=== PATIENT | female | born 1965 | race Caucasian/White ===

== ENCOUNTER 2018-07-20 08:56 | Emergency (ER) | payer OTHER ==
[2018-07-20 08:57] VITALS: BMI 40.2
[2018-07-20] MEDS ORDERED: MethylPREDNISolone 40 mg Vial IVP STA (09:15)
[2018-07-20] MEDS ORDERED: DiphenhydrAMINE 50 mg/ml Inj IVP STA (09:15)
[2018-07-20] MEDS ORDERED: Sodium Chloride 0.9% 1,000 ML IV ONE (09:15)
--- NOTE | 2018-07-20 09:19 | C.PDOC ---
History Of Present Illness 52 yo female hx of hiv, cd4 1000, undetectal viral load. presnts iwth rash, "Swelling", cough, fever, sore throat. as per pt started on doxy for "Cold " as per pt. states notedpuritic rash, "Swelling" today. no fevers, no other comp laints. compliant with meds. Time Seen by Provider: 07/20/18 09:11 Chief Complaint (Nursing): Allergic Reaction Past Medical History Reviewed: Historical Data, Nursing Documentation, Vital Signs Vital Signs: Last Vital Signs Temp 99.4 F 07/20/18 09:00 Pulse 81 07/20/18 09:00 Resp 20 07/20/18 09:00 BP 150/99 H 07/20/18 09:00 Pulse Ox 99 07/20/18 09:00 - Medical History PMH: Arthritis, Asthma, HIV, Rheumatoid Arthritis Denies: Chronic Kidney Disease - [facility] Procedures REMOVAL OF LINER FROM LEFT KNEE JOINT, OPEN APPROACH (01/18/16) REMOVAL OF SYNTH SUB FROM L KNEE JT, OPEN APPROACH (01/18/16) REPLACE L KNEE JT, TIBIAL W SYNTH SUB, UNCEMENT, OPEN (01/18/16) SUPPLEMENT L KNEE JT WITH LINER, PATELLA, OPEN APPROACH (01/18/16) Family History: States: Unknown Family Hx - Social History Hx Tobacco Use: No Hx Alcohol Use: No Hx Substance Use: No - Immunization History Hx Tetanus Toxoid Vaccination: No Hx Influenza Vaccination: Yes Hx Pneumococcal Vaccination: No Review Of Systems Except As Marked, All Systems Reviewed And Found Negative. Respiratory: Positive for: Cough, Shortness of Breath Skin: Positive for: Rash Physical Exam - Physical Exam Appears: Well, No Acute Distress, Other (speaking full sentences in nad) Skin: Normal Color, Warm, Dry Eye(s): bilateral: Normal Inspection, PERRL, EOMI Nose: Normal Throat: Erythema, No Exudate Neck: Normal Cardiovascular: Rhythm Regular Respiratory: Normal Breath Sounds, No Rales, No Rhonchi Gastrointestinal/Abdominal: Normal Exam, Soft, No Tenderness, No Guarding, No Rebound Back: Normal Inspection Extremity: Normal ROM Neurological/Psych: Oriented x3, Normal Speech, Normal Cognition ED Course And Treatment - Laboratory Results Result Diagrams: 07/20/18 09:43 07/20/18 09:43 O2 Sat by Pulse Oximetry: 99 Medical Decision Making Medical Decision Making: allergic reaction, ro influenza, pna uti- labs imaging pending pt reassesed symptoms improving. compliant with antiviral. undetectable viral load, cd4-1000. labs cxr neg. will empirically treat with tamiflu given influenza like illness. rashing swelling improved. asking fordc/ Disposition - Disposition Disposition: HOME/ ROUTINE Disposition Time: 11:00 Condition: STABLE Additional Instructions: please follow up with your doctor/clinic. return to er with worsening symptoms or concerns. Prescriptions: DiphenhydrAMINE [Benadryl] 25 mg PO Q4 PRN #20 cap PRN Reason: Itching / Pruritus Famotidine [Pepcid] 20 mg PO DAILY #20 tab Oseltamivir Phosphate [Tamiflu] 75 mg PO BID #10 capsule RX: Prednisone 50 mg PO DAILY #5 tablet Instructions: Allergy Testing, Skin Rash, Viral Syndrome (DC), Adverse Drug Reactions, Adult (DC) Forms: [facility] ([place]yan) - Clinical Impression Clinical Impression: Allergic reaction, Viral syndrome
[2018-07-20 09:49] LABS: BASO % 0.6 % (0.0-2.0); EOS # 0.1 K/uL (0.0-0.7); HEMOGLOBIN 13.5 g/dL (11.0-16.0); LYMPH # 2.1 K/uL (1.0-4.3); LYMPH % 24.3 % (20.0-40.0); MEAN CORPUSCULAR HEMOGLOBIN 26.5 pg (27.0-31.0); MEAN CORPUSCULAR HGB CONC 33.1 g/dL (33.0-37.0); MONO # 0.5 K/uL (0.0-0.8); MONO % 5.6 % (0.0-10.0); NEUT # 5.8 K/uL (1.8-7.0); NEUT % 68.5 % (50.0-75.0); RBC 5.09 Mil/uL (3.80-5.20); RED CELL DISTRIBUTION WIDTH 14.9 % (11.5-14.5); WHITE BLOOD COUNT 8.5 K/uL (4.8-10.8)
[2018-07-20] MEDS ORDERED: Sodium Chloride 0.9% 1,000 ML ONE (09:49)
[2018-07-20] MEDS ORDERED: DiphenhydrAMINE 50 mg/ml Inj ONE (09:49)
--- NOTE | 2018-07-20 09:59 | RAD ---
Date of service: 07/20/2018 HISTORY: SOB COMPARISON: No prior. TECHNIQUE: Chest PA and lateral FINDINGS: LUNGS: Poor inspiration with low lung volumes, crowded bronchovascular markings and minor bibasilar atelectasis PLEURA: No significant pleural effusion identified. No pneumothorax apparent. CARDIOVASCULAR: No appreciable aortic atherosclerotic calcification present. The heart appears mildly enlarged.. No pulmonary vascular congestion. OSSEOUS STRUCTURES: Minor multilevel degenerative spondylosis of the thoracic spine. VISUALIZED UPPER ABDOMEN: Normal. OTHER FINDINGS: None. IMPRESSION: Poor inspiration with low lung volumes, crowded bronchovascular markings and minor bibasilar atelectasis
[2018-07-20 10:02] LABS: INR 1.1; PROTHROMBIN TIME 12.3 SECONDS (9.7-12.2)
[2018-07-20 10:05] LABS: ALB/GLOB RATIO 1.4 (1.0-2.1); ALBUMIN 4.7 g/dL (3.5-5.0); AST/SGOT 71 U/L (14-36); BLOOD UREA NITROGEN 13 mg/dL (7-17); CALCIUM 9.3 mg/dl (8.6-10.4); GFR NON-AFRICAN AMERICAN > 60
[2018-07-20 10:06] LABS: INFLUENZA A B NEGATIVE FOR FLU A/B (NEGATIVE)
[2018-07-20 10:36] LABS: HCG,QUALITATIVE URINE NEGATIVE (NEGATIVE)
[2018-07-20 10:41] LABS: SQUAMOUS EPITHIAL 8 /hpf (0-5); URINE BACTERIA RARE (<OCC); URINE BILIRUBIN NEGATIVE (NEGATIVE); URINE BLOOD NEGATIVE (NEGATIVE); URINE CLARITY Clear (Clear); URINE COLOR Yellow (YELLOW); URINE GLUCOSE (UA) NORMAL (Normal); URINE LEUKOCYTE ESTERASE NEG Leu/uL (Negative); URINE PROTEIN NEGATIVE (NEGATIVE); URINE UROBILINOGEN NORMAL mg/dL (0.2-1.0)
[2018-07-20 11:18] LABS: ALT/SGPT 63 U/L (9-52)
[2018-07-20 11:44] VITALS: BP 145/98; PULSE 73; RESP 18; TEMP 99.1
[2018-07-20 16:06] VITALS: O2SAT 99
== END 2018-07-20 11:46 | disposition home or self-care (01) ==
LOC: C.ER 08:56
DX: B34.9 Viral infection, unspecified (principal); T78.49XA Other allergy, initial encounter; X58.XXXA Exposure to other specified factors, initial encounter
CPT/HCPCS: 71046; 80053; 81001; 84703; 85025; 85610; 85730; 87070; 87430; 87804; 96361; 96374; 96375; 99285; J1200; J2920; J7030

== ENCOUNTER 2019-01-21 15:36 | Emergency (ER) | payer OTHER | END 2019-01-21 22:03 | disposition home or self-care (01) | LOC: C.ER 15:36 ==